=== PATIENT | female | born 1955 | race Caucasian/White ===

== ENCOUNTER → 2016-12-25 | Outpatient (CLI) | payer OTHER | LOC: C.LABSPEC 14:25 | PROVIDERS: ATTEND Internal Medicine Infectious Disease | DX: T88.8XXA Other specified complications of surgical and medical care, not elsewhere classified, initial encounter (principal); X58.XXXA Exposure to other specified factors, initial encounter ==

== ENCOUNTER → 2017-03-31 | Outpatient (CLI) | payer OTHER ==
[2017-03-31 19:42] LABS: BASO % 0.6 %; BASO ABS # 0.07 K/uL (0-0.2); COMPLETE YES; EOS % 1.2 %; IG% 0.6 %; LYMPH % 20.6 %; LYMPH ABS # 2.41 K/uL (1.2-3.4); MEAN CELL VOLUME 91.2 fL (80-100); MEAN CORPUSCULAR HEMOGLOBIN 27.9 pg (25-34); MEAN CORPUSCULAR HGB CONC 30.6 g/dl (32-36); MEAN PLATELET VOLUME 8.9 fL (7.4-10.4); MONO % 7.3 %; NEUT % 69.7 %; PLATELET COUNT 657 K/uL (130-400); WHITE BLOOD COUNT 11.72 K/uL (4.8-10.8)
[2017-03-31 19:56] LABS: ALT/SGPT 44 U/L (12-78); BLOOD UREA NITROGEN 14 mg/dl (7-18); CALCIUM 9.2 mg/dl (8.5-10.1); CARBON DIOXIDE 26 mmol/L (21-32); CHLORIDE 104 mmol/L (98-107); CREATININE 0.68 mg/dl (0.60-1.20); GLUCOSE 107 mg/dl (70-99); POTASSIUM 3.5 mmol/L (3.5-5.1); SODIUM 137 mmol/L (136-145)
[2017-03-31 19:59] LABS: ALB/GLOB RATIO 0.8 (0.9-2); ALKALINE PHOSPHATASE 95 U/L (45-117); AST/SGOT 24 U/L (15-37)
== END | disposition home or self-care (01) ==
LOC: C.LABSPEC 10:25
PROVIDERS: ATTEND Orthopaedic Surgery
DX: L03.319 Cellulitis of trunk, unspecified (principal)

== ENCOUNTER → 2017-04-14 | Outpatient (CLI) | payer OTHER ==
[2017-04-14 11:51] LABS: BASO % 0.5 %; BASO ABS # 0.04 K/uL (0-0.2); COMPLETE YES; EOS % 2.9 %; HEMATOCRIT 35.1 % (37-47); IG% 0.2 %; LYMPH % 24.6 %; LYMPH ABS # 2.05 K/uL (1.2-3.4); MEAN CELL VOLUME 91.4 fL (80-100); MEAN CORPUSCULAR HEMOGLOBIN 28.4 pg (25-34); MEAN CORPUSCULAR HGB CONC 31.1 g/dl (32-36); MEAN PLATELET VOLUME 9.1 fL (7.4-10.4); MONO % 8.2 %; NEUT % 63.6 %; PLATELET COUNT 383 K/uL (130-400); RED BLOOD COUNT 3.84 M/uL (4.2-5.4); WHITE BLOOD COUNT 8.32 K/uL (4.8-10.8)
[2017-04-14 11:59] LABS: ALT/SGPT 26 U/L (12-78); BLOOD UREA NITROGEN 12 mg/dl (7-18); BUN/CREATININE RATIO 18.1 (10-20); CALCIUM 9.5 mg/dl (8.5-10.1); CARBON DIOXIDE 25 mmol/L (21-32); CHLORIDE 106 mmol/L (98-107); CREATININE 0.64 mg/dl (0.60-1.20); GLUCOSE 80 mg/dl (70-99); POTASSIUM 3.8 mmol/L (3.5-5.1); SODIUM 138 mmol/L (136-145)
[2017-04-14 12:02] LABS: ALB/GLOB RATIO 0.9 (0.9-2); ALKALINE PHOSPHATASE 80 U/L (45-117); AST/SGOT 17 U/L (15-37)
== END | disposition home or self-care (01) ==
LOC: C.LABSPEC 11:38
PROVIDERS: ATTEND Orthopaedic Surgery
DX: Z01.89 Encounter for other specified special examinations (principal)

== ENCOUNTER → 2017-04-21 | Outpatient (CLI) | payer OTHER ==
[2017-04-21 17:42] LABS: BASO % 0.6 %; BASO ABS # 0.05 K/uL (0-0.2); COMPLETE YES; EOS % 2.8 %; IG% 0.4 %; LYMPH ABS # 2.08 K/uL (1.2-3.4); MEAN CELL VOLUME 92.7 fL (80-100); MEAN CORPUSCULAR HEMOGLOBIN 28.3 pg (25-34); MEAN CORPUSCULAR HGB CONC 30.5 g/dl (32-36); MEAN PLATELET VOLUME 9.4 fL (7.4-10.4); MONO % 7.1 %; NEUT % 63.1 %; PLATELET COUNT 378 K/uL (130-400); RED BLOOD COUNT 3.99 M/uL (4.2-5.4)
[2017-04-21 17:58] LABS: ALT/SGPT 27 U/L (12-78); BLOOD UREA NITROGEN 11 mg/dl (7-18); BUN/CREATININE RATIO 16.1 (10-20); CALCIUM 9.6 mg/dl (8.5-10.1); CARBON DIOXIDE 24 mmol/L (21-32); CHLORIDE 107 mmol/L (98-107); CREATININE 0.67 mg/dl (0.60-1.20); GLUCOSE 83 mg/dl (70-99); POTASSIUM 3.9 mmol/L (3.5-5.1); SODIUM 140 mmol/L (136-145)
[2017-04-21 18:01] LABS: ALB/GLOB RATIO 0.9 (0.9-2); ALKALINE PHOSPHATASE 80 U/L (45-117); AST/SGOT 20 U/L (15-37)
== END | disposition home or self-care (01) ==
LOC: C.LABSPEC 11:58
PROVIDERS: ATTEND Orthopaedic Surgery
DX: L03.319 Cellulitis of trunk, unspecified (principal)

== ENCOUNTER → 2017-04-28 | Outpatient (CLI) | payer OTHER ==
[2017-04-28 18:50] LABS: BASO % 0.3 %; BASO ABS # 0.03 K/uL (0-0.2); COMPLETE YES; HEMATOCRIT 36.3 % (37-47); IG% 0.3 %; LYMPH % 25.4 %; LYMPH ABS # 2.19 K/uL (1.2-3.4); MEAN CELL VOLUME 92.1 fL (80-100); MEAN CORPUSCULAR HEMOGLOBIN 28.4 pg (25-34); MEAN CORPUSCULAR HGB CONC 30.9 g/dl (32-36); MEAN PLATELET VOLUME 9.6 fL (7.4-10.4); MONO % 8.4 %; NEUT % 63.6 %; PLATELET COUNT 414 K/uL (130-400); RED BLOOD COUNT 3.94 M/uL (4.2-5.4); WHITE BLOOD COUNT 8.62 K/uL (4.8-10.8)
== END | disposition home or self-care (01) ==
LOC: C.LABSPEC 17:44
PROVIDERS: ATTEND Orthopaedic Surgery
DX: L03.319 Cellulitis of trunk, unspecified (principal)

== ENCOUNTER 2017-05-15 23:30 | Emergency (ER) | payer OTHER ==
[~2017-05-15] VITALS: Ht 167.6 cm; Wt 76.5 kg
[2017-05-15 23:39] VITALS: TEMP 36.7; Ht 167.6 cm; Wt 76.5 kg
--- NOTE | 2017-05-16 00:26 | EMERGENCY ROOM VISIT NOTE ---
History Report prepared by Mikki: Malissa Reeves Under the Supervision of: Dr. Gene Ghotra M.D. First contact with patient: 23:44 Chief Complaint: WOUND INFECTION Stated Complaint: INFECTION IN OPEN HIP WOUND LFT SIDE,WOUND VAC History of Present Illness The patient is a 61 year old female who presents to the Emergency Room with complaints of a worsening wound infection starting 8 weeks ago. The patient states that she has a wound vac in place. She reports that she had a hip replacement in September and has been having repeated infections since then. She states that her at home nurse today noticed that it was infected today. The patient states that she has yellow drainage from it with a smell, is red, and is hot to the touch. She states that she was told they would come put one on tonight, but the nurse refused to come do it. The patient states that she was on antibiotics and ended them last Thursday. She reports that she came to the ED to get her wound vac put back on. She currently rates her pain as a 2/10 in severity. The patient denies fever, nausea, vomiting, and abdominal pain. Source of History: patient Onset: 8 weeks ago Position: other (global) Symptom Intensity: 2/10 Quality: other (global) Timing: worsening Associated Symptoms: No fevers, No nausea, No vomiting, No abdominal pain Note: The patient complains of her wound having yellow smelly drainage, erythema, and warmth. Review of Systems See HPI for pertinent positives & negatives. A total of 10 systems reviewed and were otherwise negative. Past Medical & Surgical Surgical Problems: (1) History of hip replacement Family History No pertinent family history Social History Smoking Status: Never Smoker Drug Use: none Marital Status: Housing Status: lives with significant other Occupation Status: retired Current/Historical Medications Unable to Obtain Active Prescriptions or Reported Meds Physical Exam Vital Signs Date Time Temp Pulse Resp B/P (MAP) Pulse Ox O2 Delivery O2 Flow Rate FiO2 05/16/17 00:54 90 18 135/104 97 05/15/17 23:39 36.7 104 16 151/98 96 Room Air Physical Exam GENERAL: Patient is well appearing and in no acute distress. HEENT: No acute trauma, normocephalic atraumatic, mucous membranes moist, no nasal congestion, no scleral icterus. NECK: No stridor, no adenopathy, no meningismus, trachea is midline. ABDOMEN: Soft, nontender, bowel sounds positive, no masses appreciated, no peritonitis. EXTREMITIES: Normal motion all extremities, no cyanosis, no edema. Large deep wound of the left lateral hip with some surrounding skin irritation. Inner portion of wound is draining mild exudate with increased erythema and warmth. NEUROLOGIC: Alert and oriented, no acute motor or sensory deficits, no focal weakness, cranial nerves grossly intact. SKIN: No rash, no jaundice, no diaphoresis. Medical Decision & Procedures ED Course 2347: The patient was evaluated in room B7. A complete history and physical exam was performed. 2350: I discussed the patient with the charge nurse and they are going to try to figure out if anyone knows how to put a wound vac back on. 0026: I reevaluated the patient. She will see her surgeon on Thursday. We are going to bandage her wounds. I discussed my feeling that she should be on a higher dose of Clindamycin. Discussed results and discharge instructions: She verbalized understanding and agreement. The patient is ready for discharge. Medical Decision Pleasant 61 yr old female arrives for replacement of left hip wound vac. She has extensive surgical/infection history of this site which has been treated at [facility] and has not been seen here previously. She is requesting replacement of wound vac that was recently removed as well as wound culture. ER policy is that wound vacs are not placed and thus discussed this with patient, as did Dada Charge Nurse. We dressed wound in standard fashion after culture sent. She is currently just started on 300mg Clinda BID. I discussed my concern that , especially with her history, this may not be a high enough dose and thus I suggested she talk to her prescriber about it. I also told her I felt it would be safe to do QID abx in short term, though there are risks for cdiff/etc. She has no systemic symptoms, no spreading cellulitis and is otherwise stable thus I feel that continued outpatient reasonable, especially so that she can see person who has been managing this in next few days as planned. She is well aware she can return at any time if worsening or other concerns. Medication Reconcilliation Current Medication List: was personally reviewed by me Blood Pressure Screening Patient's blood pressure: Elevated blood pressure Blood pressure disposition: Referred to PCP Impression Primary Impression: Encounter for postoperative wound care Additional Impression: Postoperative wound infection of left hip Scribe Attestation The scribe's documentation has been prepared under my direction and personally reviewed by me in its entirety. I confirm that the note above accurately reflects all work, treatment, procedures, and medical decision making performed by me. Departure Information Dispostion Home / Self-Care Prescriptions Unable to Obtain Active Prescriptions or Reported Meds Referrals No Doctor, Assigned (PCP) Forms HOME CARE DOCUMENTATION FORM, IMPORTANT VISIT INFORMATION, WORK / SCHOOL INSTRUCTIONS Patient Instructions My [facility] Additional Instructions Follow up with wound care nurse tomorrow to discuss placement of wound vac. Discuss with your surgeon on Thursday the results of wound culture. Return if fevers, vomiting, nausea, passing out, weakness, increased rash or other concerning symptoms. We are always here to help. It is very important you discuss with your surgeon the optimal dosing of your Clindamycin. Problem Qualifiers
[2017-05-16 00:54] VITALS: BP 135/104; PULSE 90; O2SAT 97
== END 2017-05-16 00:55 | disposition home or self-care (01) ==
LOC: C.EDB 23:32
DX: L08.9 Local infection of the skin and subcutaneous tissue, unspecified (principal); Z98.890 Other specified postprocedural states; Z96.642 Presence of left artificial hip joint

== ENCOUNTER → 2017-07-10 | Outpatient (CLI) | payer OTHER | END | disposition home or self-care (01) | LOC: C.LABSPEC 13:15 | PROVIDERS: ATTEND Family Medicine | DX: Z01.89 Encounter for other specified special examinations (principal) ==

== ENCOUNTER → 2017-07-19 | Outpatient (CLI) | payer OTHER | END | disposition home or self-care (01) | LOC: C.LABSPEC 11:58 | PROVIDERS: ATTEND Family Medicine | DX: L03.119 Cellulitis of unspecified part of limb (principal) ==

== ENCOUNTER → 2017-07-27 | Outpatient (CLI) | payer OTHER ==
[2017-07-27 12:25] LABS: BASO % 0.6 %; BASO ABS # 0.05 K/uL (0-0.2); EOS ABS # 0.33 K/uL (0-0.5); HEMATOCRIT 34.9 % (37-47); IG# 0.02 K/uL (0.00-0.02); LYMPH % 18.7 %; LYMPH ABS # 1.54 K/uL (1.2-3.4); MEAN CELL VOLUME 84.5 fL (80-100); MEAN CORPUSCULAR HEMOGLOBIN 26.6 pg (25-34); MEAN CORPUSCULAR HGB CONC 31.5 g/dl (32-36); MEAN PLATELET VOLUME 9.3 fL (7.4-10.4); MONO % 10.1 %; MONO ABS # 0.83 K/uL (0.11-0.59); NEUT % 66.4 %; NEUT ABS # 5.48 K/uL (1.4-6.5); PLATELET COUNT 489 K/uL (130-400); RED CELL DISTRIBUTION WIDTH CV 16.2 % (11.5-14.5); RED CELL DISTRIBUTION WIDTH SD 50.4 fL (36.4-46.3); WHITE BLOOD COUNT 8.25 K/uL (4.8-10.8)
[2017-07-27 12:36] LABS: BLOOD UREA NITROGEN 17 mg/dl (7-18); CALCIUM 9.8 mg/dl (8.5-10.1); CARBON DIOXIDE 26 mmol/L (21-32); CREATININE 0.64 mg/dl (0.60-1.20); GLUCOSE 91 mg/dl (70-99); POTASSIUM 3.6 mmol/L (3.5-5.1); SODIUM 135 mmol/L (136-145)
== END | disposition home or self-care (01) ==
LOC: C.LABSPEC 09:15
PROVIDERS: ATTEND Family Medicine
DX: T84.52XD Infection and inflammatory reaction due to internal left hip prosthesis, subsequent encounter (principal); X58.XXXD Exposure to other specified factors, subsequent encounter

== ENCOUNTER → 2017-09-24 | Outpatient (CLI) | payer OTHER | END | disposition home or self-care (01) | LOC: C.LAB 11:45 | PROVIDERS: ATTEND Orthopaedic Surgery | DX: N39.0 Urinary tract infection, site not specified (principal) ==

== ENCOUNTER 2021-11-26 10:35 | Observation (INO) ==
--- NOTE | 2021-10-30 08:30 | PAT Medication Instructions ---
Medication Instructions Date of Service October 30, 2021 Home Medications atenolol 25 mg tablet 25 mg PO QAM cholecalciferol (vitamin D3) 125 mcg (5,000 unit) tablet (Vitamin D3) 5,000 unit PO QAM cyanocobalamin (vitamin B-12) 1,000 mcg tablet 1,000 mcg PO BID ferrous sulfate 325 mg (65 mg iron) tablet 325 mg PO BID folic acid 1 mg tablet 1 mg PO QAM magnesium oxide 400 mg (241.3 mg magnesium) tablet 400 mg PO QPM [place] Rosea 2 cap PO QAM bupropion HCl 150 mg tablet,12 hr sustained-release 150 mg PO BID clonazepam 0.25 mg disintegrating tablet 0.25 mg PO QID famotidine 20 mg tablet 20 mg PO BID ibuprofen 200 mg tablet 400 mg PO Q6H PRN vitamin K2 100 mcg capsule 100 mcg PO QAM ASK your surgeon for instructions ibuprofen 200 mg tablet 400 mg PO Q6H PRN ASK your prescriber and surgeon (or as soon as possible if surgery is within 2 weeks) Rhodiola Rosea 2 cap PO QAM DO NOT take the morning of surgery cholecalciferol (vitamin D3) 125 mcg (5,000 unit) tablet (Vitamin D3) 5,000 unit PO QAM cyanocobalamin (vitamin B-12) 1,000 mcg tablet 1,000 mcg PO BID ferrous sulfate 325 mg (65 mg iron) tablet 325 mg PO BID folic acid 1 mg tablet 1 mg PO QAM vitamin K2 100 mcg capsule 100 mcg PO QAM Take morning of surgery With a small sip of water, OTHERWISE NOTHING TO EAT OR DRINK AFTER MIDNIGHT: atenolol 25 mg tablet 25 mg PO QAM bupropion HCl 150 mg tablet,12 hr sustained-release 150 mg PO BID clonazepam 0.25 mg disintegrating tablet 0.25 mg PO QID Take evening before surgery cyanocobalamin (vitamin B-12) 1,000 mcg tablet 1,000 mcg PO BID ferrous sulfate 325 mg (65 mg iron) tablet 325 mg PO BID magnesium oxide 400 mg (241.3 mg magnesium) tablet 400 mg PO QPM bupropion HCl 150 mg tablet,12 hr sustained-release 150 mg PO BID clonazepam 0.25 mg disintegrating tablet 0.25 mg PO QID famotidine 20 mg tablet 20 mg PO BID Other Notes If you have any questions please call us at [phone] or [phone] or [phone] or [phone]
--- NOTE | 2021-10-31 11:01 | Anesthesiology Consultation ---
Date of Service October 31, 2021 Assessment & Plan (1) Encounter for pre-operative examination: - COVID screening: Per assessment on 10/31: No known COVID-19 positive contacts or current COVID-19 related symptoms. Travel screen negative. Patient vaccinated. Surgeon arranging preop COVID testing. Awaiting results. - Anemia: hgb 9.6 on preop labs. Note written to PCP. Awaiting response from PCP (Dr. Adam Miller; Omar). Chart Review Chart Review: Patient seen in Pre Admission Testing Teaching & Discussion Pre-Anesthesia Teaching/Discussion Notes: Instructed NPO after midnight before surgery,except medications with 15 cc of water. Medication instructions provided according to the PAT guidelines. History Surgery Operation Date: 11/26/21 07:00 Proposed Procedures p Right Total Knee Replacement - Arvind Carl MD Height/Weight Height: 5 ft 6 in Weight: 74.9 kg Allergies Allergy/AdvReac Type Severity Reaction Status Date / Time cephalexin [From Keflex] Allergy Intermediate Hives Verified 10/29/21 16:35 latex Allergy Mild Rash Verified 10/29/21 16:36 Sulfa (Sulfonamide Allergy Mild Rash Verified 10/29/21 16:35 Antibiotics) sulfamethoxazole Allergy Mild Rash Verified 10/29/21 16:35 trimethoprim Allergy Mild Rash Verified 10/29/21 16:35 Penicillins Allergy Unknown Unknown Verified 10/29/21 16:35 Medications Home Medications Medication Instructions Recorded Confirmed Last Taken atenolol 25 mg tablet 25 mg PO QAM 04/28/18 10/29/21 04/27/18 cholecalciferol (vitamin D3) 125 5,000 unit PO QAM 04/28/18 10/29/21 04/27/18 mcg (5,000 unit) tablet (Vitamin D3) cyanocobalamin (vitamin B-12) 1,000 mcg PO BID 04/28/18 10/29/21 04/27/18 1,000 mcg tablet ferrous sulfate 325 mg (65 mg 325 mg PO BID 04/28/18 10/29/21 04/27/18 iron) tablet folic acid 1 mg tablet 1 mg PO QAM 04/28/18 10/29/21 04/27/18 magnesium oxide 400 mg (241.3 mg 400 mg PO QPM 04/28/18 10/29/21 04/27/18 magnesium) tablet Rhodiola Rosea 2 cap PO QAM 10/29/21 10/29/21 Unknown bupropion HCl 150 mg tablet,12 hr 150 mg PO BID 10/29/21 10/29/21 Unknown sustained-release clonazepam 0.25 mg disintegrating 0.25 mg PO QID 10/29/21 10/29/21 Unknown tablet famotidine 20 mg tablet 20 mg PO BID 10/29/21 10/29/21 Unknown ibuprofen 200 mg tablet 400 mg PO Q6H PRN 10/29/21 10/29/21 Unknown vitamin K2 100 mcg capsule 100 mcg PO QAM 10/29/21 10/29/21 Unknown Past Medical History Medical History Anxiety Depression GERD (gastroesophageal reflux disease) controlled Hypertension Lyme disease on doxycycline (incidental finding with workup for knee swelling) Osteoarthritis Psoriatic arthritis Exercise / Class Metabolic Activity II 4-5 Yardwork/Stairs/Walk up hill (one FS (no CP, no SOB)) Past Family History Family History Other No family history of adverse response to anesthesia Past Surgical History Surgical History History of section x2 History of colonoscopy History of left hip replacement s/p replacement in 2017 followed by prosthetic joint infection, with subsequent removal of prosthetic joint s/p repeat replacement in 09/2017 ([facility] [place]) ORIF Periprosthetic FMR FX Hip (04/28/18): Grade view 1, Mora #2, ETT 7.5 at [facility] History of wisdom tooth extraction Past Anesthesia History No Hx of Anesthesia Complications and No Family Hx of Anesthesia Complications History of PONV No Hx of PONV and No Hx of Motion Sickness Social History Smoking Status: Never smoker Do You Dip or Chew Tobacco: No Hx Alcohol Use: Yes Alcohol type: wine alcohol intake frequency: a few times a month Hx Substance Use: No substance use type: does not use Review of Systems Patient denies chest pain, shortness of breath, dyspnea on exertion, fever, chills, cough, wheezing, palpitations. Physical Exam Vital Signs VITALS BP 124/82 P 68 TEMP 99.0 SP02 97%RA RESP 18 PHYSICAL Full cervical extension range of motion. Full TMJ range of motion. TMD 3 finger breaths Mallampati Score 2 Dentition: missing molar, + crown Lungs: clear throughout to auscultation Cardiac: regular rate and rhythm, I-II/ systolic murmur Spine: normal Carotid arteries: negative bruit Extremities: no edema Lab Results Anesthesia Preop Results Results Anesthesia Widget: WBC 5.50 K/uL (4.8-10.8) 10/31/21 Hgb 9.6 g/dL (12.0-16.0) L 10/31/21 Hct 31.3 % (37-47) L 10/31/21 Plt 453 K/uL (130-400) H 10/31/21 Na 138 mmol/L (136-145) 10/31/21 K 4.4 mmol/L (3.5-5.1) 10/31/21 Cl 106 mmol/L (98-107) 10/31/21 CO2 26 mmol/L (21-32) 10/31/21 BUN 12 mg/dl (6-23) 10/31/21 Creat 0.79 mg/dl (0.6-1.2) 10/31/21 Glucose Level 91 mg/dl (70-99(Fasting)) 10/31/21 PT 10.5 Seconds (9.0-12.0) 10/31/21 PTT 25.5 Seconds (21.0-31.0) 10/31/21 INR 1.0 (0.9-1.1) 10/31/21 Blood Type A Positive 10/31/21 Antibody Screen NEGATIVE 10/31/21 Testing Laboratory Results 10/09/21 HGBA1C 5.3% Electrocardiogram Date: 10/31/21 NSR at 68bpm. unconfirmed report. Chest X-Ray Date: 10/31/21 Findings: + NAD Echocardiogram Date: 12/26/15 EF 64%. No RWMA. Mild TR. Mild MR.
--- NOTE | 2021-11-23 10:36 | History and Physical Report ---
DATE OF ADMISSION: 11/26/2021 CHIEF COMPLAINT: Persistent right knee pain, discomfort and instability. HISTORY OF PRESENT ILLNESS: The patient is a 66-year-old female well known to me from a previous lef t periprosthetic femur ORIF done back in April 2018. She has got a very complex history related to her left hip. She did pretty well from this. Over the past several years, she has had persistent p rogressive increasing right knee pain, discomfort and instability that has gotten worse over time. S he has been through extensive conservative treatment including bracing and injections, which have pro vided some relief initially, but became less successful. Her knee gives out on her intermittently. She is using a cane to get around. She would like to have her knee fixed. PAST MEDICAL HISTORY: Significant for: 1. Depression. 2. Anxiety. 3. Gastroesophageal reflux disease. 4. Hypertension. 5. Arthritis. PAST SURGICAL HISTORY: Includes: 1. Left hip replacement in 2016. 2. Left hip revision with antibiotic spacer in 09/2017. 3. Left periprosthetic femur ORIF in 2018. ALLERGIES: KEFLEX, WHICH CAUSES HIVES. ALSO, DESCRIBES ALLERGIES TO BACTRIM, PENICILLIN AND SULFA. CURRENT MEDICATIONS: Include: 1. Aspirin. 2. Atenolol. 3. Vitamin D3. 4. Citalopram. 5. Clonazepam. 6. Iron sulfate. 7. Folic acid. 8. Hydrocodone. 9. Magnesium. 10. Omeprazole. 11. Ranitidine. SOCIAL HISTORY: A 66-year-old female. She is . She does have a significant other who care for her. Does not smoke. Occasional wine intake. FAMILY HISTORY: Noncontributory. REVIEW OF SYSTEMS: Negative for diabetes, neurologic problem, vascular problem, or bleeding disorder s. Does have this history of infection, which looks to be cleared up. She does have a history of ri ght leg wound, which is healed as well. No signs of persistent infection. No fevers, no weight loss . PHYSICAL EXAMINATION: GENERAL: Shows a pleasant, elderly female. Looks to be in reasonably good health. HEENT: Benign. NECK: Supple. No lymphadenopathy. LUNGS: Clear to auscultation. HEART: Regular rate and rhythm. ABDOMEN: Soft, nontender, nondistended. EXTREMITIES: Grossly neurovascularly intact except as follows: Examination of the right leg reveale d the patient walks with use of a cane. She has got valgus alignment to her right knee increased wit h weightbearing. It goes into significant valgus. She has about a 10-degree flexion contracture and bends about 110 degrees. No pain with hip motion. She is neurologically intact. Examination of the right mike reveals a well-healed wound from some chronic stasis changes. No activ e signs of infection. She does have some venous stasis changes. Examination of the left hip reveals several and multiple wounds that appear to be well-healed. X-RAYS: X-rays of the right knee reviewed. She has advanced right knee lateral compartment DJD. Sh e has complete loss of her lateral joint space. She has got gapping medially. She has subchondral s clerosis. Diffuse osteopenia. ASSESSMENT: A 66-year-old female with a complex history related to a previous left hip surgery and i nfection, status post ORIF of a fracture with what looks to be a healed hip and femur. There are no signs of residual infection. She has got advanced right knee degenerative joint disease and failed c onservative treatment and would like to have her right knee replaced. She does have some chronic florian ous stasis changes, but look to be all healed up. PLAN: We talked about treatment. She would like to have her knee fixed. We will proceed with knee replacement. We did talk about her increased risk of infection. We are going to be very careful as far as controlling her swelling. The risks and benefits of right total knee replacement were explain ed to the patient and include, but not limited to DVT, PE, , infection, neurological injury, vas cular injury, bleeding problem, pain, limited range of motion, stiffness, failure to relieve her symp toms, incomplete relief of symptoms, need for further surgery in the future, persistent pain, etc. T he patient understands and desires to proceed. Informed consent was obtained. We will probably put some vancomycin in her cement to try and decrease the risk of infection. We yariel garcia probably treat her with a week of postoperative antibiotics as well. She does have some help at [facility] to help her postoperatively. I will see her back two weeks postop. We will likely need a constra ined insert for her knee as well. Job ID: [id number]
[~2021-11-26 10:35] MED LIST: ACETAMINOPHEN 500 MG TAB PO SCH; BUPIVACAINE 0.5 % 5 MG/1 ML PF 10ML VIAL ONE; BUPIVACAINE LIPOSOME/PF 266 MG, BUPIVACAINE/EPINEPHRINE 50 ML, SODIUM CHLORIDE 0.9% 30 ... INFIL SCH; FAMOTIDINE 20 MG TAB PO SCH; GABAPENTIN 300 MG CAP PO SCH; LR 500ML BOLUS, THEN 15ML/HR IV SCH; ROPIVACAINE 0.5% 5 MG/ML 30 ML VIAL ONE; TRANEXAMIC ACID 1,000 MG **IV Intra-op IV SCH; ceFAZolin 2000MG 2,000 MG/15 ML SYR IV SCH
--- NOTE | 2021-11-26 10:50 | History & Physical Bridge Note ---
Date of Service November 26, 2021 History & Physical Bridge Note I have examined the patient, reviewed the History & Physical and in the interval since the performance of the History & Physical I have noted the following changes of clinical significance: no changes noted
[2021-11-26] MEDS: LR 60ML/HR IV SCH ×2 (11:33→17:41)
[2021-11-26] MEDS ORDERED: MIDAZOLAM HCL 1 MG/ML 2ML VIAL ONE (12:21)
[2021-11-26] MEDS ORDERED: BUPIVACAINE/EPINEPHRINE 0.25% 1:200,000 30 ML VIAL ONE (12:58)
[2021-11-26] MEDS ORDERED: SODIUM CHLORIDE 0.9% PF 50 ML VIAL ONE (12:59)
[2021-11-26] MEDS ORDERED: BUPIVACAINE LIPOSOME 1.3% 266 MG/20 ML VIAL ONE (12:59)
[2021-11-26] MEDS ORDERED: VANCOMYCIN HCL 1000MG/20ML VIAL ONE (12:59)
[2021-11-26] MEDS ORDERED: LIDOCAINE 2% 2 ML VIAL/AMP(20MG/ML) INFIL ONE (13:07)
[2021-11-26] MEDS ORDERED: PROPOFOL IV EMULSION 10 MG/ML 20 ML VIAL IV ONE (13:07)
[2021-11-26] MEDS ORDERED: ONDANSETRON INJ 2 MG/ML 2 ML VIAL ONE (13:07)
--- NOTE | 2021-11-26 15:27 | Operative Report ---
PG Post Operative Report Pre & Post Diagnosis Operation Date: 11/26/21 12:30 Pre-Op Diagnosis: Right Knee Osteoarthitis Post-Op Diagnosis: Right Knee Osteoarthitis I identified the patient and participated in the time-out.: Yes Procedure Operation Date: 11/26/21 12:30 Actual Procedures p Right Total Knee Replacement(Right) - Arvind Carl MD Surgeon Arvind Carl MD Electrical Products Engineer Brian Wallace PA-C Estimated Blood Loss 50 Findings Consistent with Post-Op Diagnosis Operative findings revealed advanced right knee tricompartment DJD with a fixed valgus deformity and severe erosive disease laterally and in the patellofemoral joint. She had a very large chronic burned-out pannus. Moderate-sized joint effusion. Diffuse osteopenia. Specimens Right knee sent for pathology Anesthesia Type Spinal MAC Complications none Disposition Accompanied Patient To Recovery: No Indications Patient is 66-year-old female said a long history of multiple joint problems over the years. She developed increased pain discomfort in her right knee. She been through extensive conservative treatment became less successful over time. Pain is become more disabling. She elected proceed with total knee arthroplasty. Description of Procedure Operative implants consist of: 1. Biomet Vanguard size 65 right posterior stabilized femoral component. 2. Biomet size 71 tibial tray with a 80 mm x 12.5 mm cemented stem 3. 10 mm posterior stabilized polyethylene insert 4. 28 x 8 all polypatella. Patient was taken the operating, identified, and placed on the operating table supine position protectors were properly padded. IV antibiotics tried by anesthesia team. A spinal anesthetic and abductor canal block had been placed in the holding area. Diaz catheter was placed in sterile fashion. Right thigh turn was then placed in the right lower extremities and prepped and draped in usual sterile fashion. The right leg was elevated exsanguinated use of an Esmarch interspaced at 3 mmHg. An anterior approach of the right knee was then performed to longitudinal incision centered over the patella. Sharp dissection carried through subcutaneous tissue down the extensor mechanism. A medial parapatellar arthrotomy incision was made. Some subperiosteal dissection was carried out medially. The fat pad was dissected beneath patella tendon. Lateral patellofemoral ligament was released. Patella subluxated laterally and the knee was flexed. The osteophytes taken off distal femur. The ACL and PCL were then released from distal femur the tibia subluxated anteriorly. The external tibial alignment jig was then placed in the interface the tibia and adjusted 12 mm medially. Proximal tibial cut was made remove about 3 to 4 mm of bone from the medial side. The medial side was fairly osteopenic. The tibia was then sized to a size 71. Attention drawn the femur. The distal femur with a sharp drop with intramedullary canal was suction. A right 5 degree valgus cutting guide was placed.. The distal femoral cutting block was pinned in place and the distal femoral cut was made to take an additional 5 mm of bone off the distal femur. We brought the knee out in extension and then I did release the IT band posterior capsule in order to equalize extension gap. The knee was flexed. The femur was then sized to a size 65. The AP cutting block was pinned parallel to the epicondylar axis which was 8 degrees of external rotation. Anterior cut, anterior chamfer, posterior cut, posterior chamfer cuts were made. The box cutting guide was placed in just slight lateral box cut was made. The knee was flexed. The remnants of medial lateral menisci were excised. The osteophytes were taken off the posterior aspect of femur. I did have to release the popliteus in order to equalize the flexion gap. A trial femoral component was placed. The tibial tray was then pinned in position. I then prepared the proximal tibia for the cemented stem with the and the keel punch. Trial implant was placed. We then trialed the knee and the 10 mm insert fit most appropriately. Her ligaments appeared stable so I did not put a constrained device. We did use a cemented stem due to her osteopenia and the severe valgus deformity. Attention drawn the patella. The patella was cleaned of all soft tissues. Patella thickness measured 22 mm in thickness cut down to 15. Was very osteopenic and I did not want to make it any thinner. We sized this to a size 28 patella. The lug holes were drilled for the 28 patella. Lateral osteophytes removed. Patella was button was placed and the knee was taken through range of motion patella tracked nicely with no thumbs test. Attention drawn to placing permanent components. Nupathe all trial components were removed. Bone plug was placed in the distal femur limit blood loss. I also placed a bone plug in the tibia. A double batch Palacos G cement was mixed with additional gram of vancomycin. A Biomet size 65 right posterior stabilized femoral component, size 71 tibial tray with a 80 mm stem, 10 mm posterior stabilized polyethylene insert, and a 28 x 8 all polypatella were then cemented in place. Knee was brought out into full extension total cement hardened. Final cement check was then performed. The pericapsular tissues were injected with total 100 cc of combination of 20 cc of Exparel, 30 cc normal saline, 50 cc of quarter percent Marcaine with epinephrine. Patient did receive 1 g tranexamic acid. The tourniquet was let down for terminal turn time side of 70 minutes. Hemostasis assured use electrocautery. Extensor mechanism closed with combination 1 PDS suture #1 Vicryl suture in [id number] fashion. Extensor mechanism checked found to be intact and subcutaneous tissue then closed with 2 Dexon suture in a buried interrupted fashion skin was closed skin emma. Leg was then cleaned and dried a sterile dressing was Xeroform, 4 x 4's, sterile cast padding, Jr bands were applied. Patient then transferred to the recovery room in stable condition. Patient tolerated procedure well and there were no complications. Brian Wallace, my physician pharmacy sales assistant, was present for the entire procedure. His assistance was essential and required for appropriate patient positioning, prepping and draping, surgical exposure, performing the technical details of the operation, placement the implants, closure of the wound, and placement of the sterile bandage. I attest to the content of the Intraoperative Record and any orders documented therein. Any exceptions are noted below.
--- NOTE | 2021-11-26 15:46 | Anesthesiology Progress Note ---
Date of Service November 26, 2021 Anesthesia Post Procedure Vital Signs Vital Signs: Temp Pulse Pulse Resp BP Pulse Ox 11/26/21 15:40 62 16 107/73 100 11/26/21 15:30 60 20 111/69 100 11/26/21 15:20 36.0 C L 69 16 103/66 95 11/26/21 13:10 55 L 20 107/74 98 11/26/21 10:50 36.6 C 69 18 155/89 H 99 Transfer of Care Handoff Completed per policy Notes Mental Status: alert / awake / arousable Patient Amnestic to Procedure: Yes Nausea / Vomiting: adequately controlled Pain: adequately controlled Airway Patency, RR, SpO2: stable & adequate BP & HR: stable & adequate Hydration State: stable & adequate Anesthetic Complications: no major complications apparent
--- NOTE | 2021-11-26 16:27 | XRay Report ---
RIGHT KNEE 2 VIEWS History: Right total knee arthroplasty. Degenerative arthritis. Postop. FINDINGS: The patient is status post a right total knee arthroplasty. The hardware is intact. No frac ture or dislocation. Skin emma are in place. IMPRESSION: Right total knee arthroplasty. No evidence for hardware complication. ACT 112: Negative or not required by law. Electronically signed by: Herber Escobedo M.D. 11/26/2021 4:25 PM
[2021-11-26] MEDS ORDERED: HYDROmorphone HCL 2 MG TAB PO PRN (16:51)
[2021-11-26] MEDS ORDERED: bisacodyL 10 MG SUPP PR PRN (16:51)
[2021-11-26] MEDS ORDERED: NALOXONE HCL 0.4 MG/1 ML VIAL/CARP IV PRN (16:51)
[2021-11-26] MEDS ORDERED: MAGNESIUM HYDROXIDE SUSP 30 ML UDC PO PRN (16:51)
[2021-11-26] MEDS ORDERED: METOCLOPRAMIDE HCL INJ 5 MG/ML 2 ML VIAL IV PRN (16:51)
[2021-11-26] MEDS ORDERED: ALUMINUM/MAGNESIUM SUSP 30 ML UDC PO PRN (16:51)
[2021-11-26] MEDS ORDERED: ONDANSETRON INJ 2 MG/ML 2 ML VIAL IV PRN (16:51)
[2021-11-26] MEDS: SODIUM CHLORIDE 0.9% 1000ML 1,000 ML IV SCH (17:49)
[2021-11-26] MEDS: clonazePAM 0.25 MG TAB PO SCH ×2 (18:24→20:58)
[2021-11-26] MEDS: KETOROLAC TROMETHAMINE 15 MG/ML VIAL IV SCH (18:26)
[2021-11-26] MEDS: ASCORBIC ACID 500 MG TAB PO SCH (18:32)
[2021-11-26] MEDS: CYANOCOBALAMIN (B-12) 500 MCG TABLET PO SCH (20:53)
[2021-11-26] MEDS: TAPENTADOL HCL ER 50 MG TABCR PO SCH (20:53)
[2021-11-26] MEDS: ASPIRIN 81 MG ECTAB PO SCH (20:54)
[2021-11-26] MEDS: FERROUS SULFATE 325 MG TAB PO SCH (20:54)
[2021-11-26] MEDS: buPROPion SR 150 MG TABCR PO SCH (20:54)
[2021-11-26] MEDS: DOCUSATE SODIUM 100 MG CAP PO SCH (20:55)
[2021-11-26] MEDS: FAMOTIDINE 20 MG TAB PO SCH (20:55)
[2021-11-26] MEDS ORDERED: MAGNESIUM OXIDE 400 MG TAB PO SCH (21:00)
[2021-11-26] MEDS ORDERED: SENNA 8.6 MG TAB PO SCH (21:00)
[2021-11-26] MEDS ORDERED: TRANEXAMIC ACID / 0.7% NACL 1,000 MG/100 ML BAG IV SCH (21:00)
[2021-11-26] MEDS ORDERED: ACETAMINOPHEN 500 MG TAB PO SCH (22:00)
[2021-11-26] MEDS: ceFAZolin 1000MG 1,000 MG/7.5 ML SYR IV SCH (22:17)
[2021-11-26] MEDS: ACETAMINOPHEN 500 MG TAB PO SCH (22:17)
[2021-11-27] MEDS: KETOROLAC TROMETHAMINE 15 MG/ML VIAL IV SCH ×3 (01:02→13:02)
[2021-11-27] MEDS: SODIUM CHLORIDE 0.9% 1000ML 1,000 ML IV SCH (04:18)
[2021-11-27] MEDS: ceFAZolin 1000MG 1,000 MG/7.5 ML SYR IV SCH (05:35)
[2021-11-27] MEDS: ACETAMINOPHEN 500 MG TAB PO SCH ×2 (05:36→14:16)
[2021-11-27 06:31] LABS: Hematocrit (blood only) 32.3 % (37-47); Hemoglobin 10.2 g/dL (12.0-16.0); Mean Corpuscular Hemoglobin 30.4 pg (25-34); Mean Corpuscular Hgb Conc 31.6 g/dL (32-36); Mean Corpuscular Volume 96.1 fL (80-100); Mean Platelet Volume 9.7 fL (7.4-10.4); Platelet Count 313 K/uL (130-400); RDW Coefficient of Variation 14.6 % (11.5-14.5); RDW Standard Deviation 51.9 fL (36.4-46.3); Red Blood Count 3.36 M/uL (4.2-5.4)
[2021-11-27 06:56] LABS: BUN Creatinine Ratio 19.1 (10-20); Calcium 8.9 mg/dl (8.5-10.1); Creatinine Clr Calc Pharmacy 62.1 ml/min; Est GFR (African American) 77.2 ml/min; Est GFR (Non-African American) 66.6 ml/min; Potassium 4.1 mmol/L (3.5-5.1)
[2021-11-27] MEDS ORDERED: dexAMETHasone 10 MG in SYRINGE 0 ML IV SCH (08:00)
[2021-11-27] MEDS: ASCORBIC ACID 500 MG TAB PO SCH (08:14)
[2021-11-27] MEDS: FAMOTIDINE 20 MG TAB PO SCH (08:14)
[2021-11-27] MEDS: buPROPion SR 150 MG TABCR PO SCH (08:15)
[2021-11-27] MEDS: FERROUS SULFATE 325 MG TAB PO SCH (08:16)
[2021-11-27] MEDS: ASPIRIN 81 MG ECTAB PO SCH (08:16)
[2021-11-27] MEDS: DOCUSATE SODIUM 100 MG CAP PO SCH (08:17)
[2021-11-27] MEDS: CYANOCOBALAMIN (B-12) 500 MCG TABLET PO SCH (08:17)
[2021-11-27] MEDS: TAPENTADOL HCL ER 50 MG TABCR PO SCH (08:29)
[2021-11-27] MEDS: clonazePAM 0.25 MG TAB PO SCH ×2 (08:30→13:01)
[2021-11-27] MEDS ORDERED: ATENOLOL 25 MG TABLET PO SCH (09:00)
[2021-11-27] MEDS ORDERED: MULTIVITAMIN TAB PO SCH (09:00)
[2021-11-27] MEDS ORDERED: FOLIC ACID 1 MG TAB PO SCH (09:00)
[2021-11-27] MEDS ORDERED: CHOLECALCIFEROL 5,000 UNITS 125 MCG TAB PO SCH (09:00)
[2021-11-27] MEDS ORDERED: RHODIOLA ROSEA PO SCH (09:00)
[2021-11-27] MEDS ORDERED: DOCUSATE SODIUM/SENNA 50/8.6MG TAB PO SCH (09:00)
[2021-11-27] MEDS ORDERED: NON-FORMULARY MEDICATION (Vitamin K2 100 mcg Capsule) PO SCH (09:00)
--- NOTE | 2021-11-27 20:54 | Progress Notes ---
DATE OF SERVICE: 11/27/2021 CHIEF COMPLAINT: Follow up of right knee replacement postoperative day 1. HISTORY OF PRESENT ILLNESS: The patient is 66-year-old female now postoperative day 1 from right kn ee replacement. Her legs finally did wake up last evening. Her pain has been controllable. Therapy went pretty well today. She is hoping to go home. No chest pain or shortness of breath. Not feeli ng dizzy or lightheaded. OBJECTIVE: VITAL SIGNS: Temperature 37.1. Vital signs are stable. PHYSICAL EXAMINATION: GENERAL: Shows a pleasant, elderly female. She is sitting up in her bedside chair, looks pretty com fortable. LUNGS: Clear to auscultation. HEART: Regular rate and rhythm. ABDOMEN: Soft, nontender, nondistended. EXTREMITIES: Grossly neurovascularly intact except as follows: Examination of the right leg reveals the dressing to be clean, dry and intact. She can do a straight leg raise, but a little bit of a la g. Bends to about 90 degrees. Dressing is clean, dry and intact. She can dorsiflex and plantarflex her foot appropriately. NEUROLOGIC: She is neurologically intact. LABORATORY DATA: Hemoglobin 10.2. Hematocrit 32.3. Electrolytes are stable. ASSESSMENT: A 66-year-old white female with a history of infection in the past, now postoperative da y 1 status post a right total knee replacement for severe valgus deformity. She is doing pretty well . Pain seems to be controlled. She is neurologically intact. PLAN: 1. DVT prophylaxis including thigh-high TEDs, SCDs, and aspirin twice a day. 2. PT/OT. She can weight bear as tolerated. Right total knee protocol. 3. Doing okay with current pain regimen. We will plan on using Dilaudid as she has used pain medici ne preoperatively. 4. Disposition: Plan to discharge to home with her /significant other's assistance and home health. Job ID: [id number]
--- NOTE | 2021-11-28 14:04 | Discharge Summary ---
Date of Service November 28, 2021 Discharge Data Procedures Performed Operation Date: 11/26/21 12:30 Actual Procedures p Right Total Knee Replacement(Right) - Arvind Carl MD Hospital Course (1) Status post total right knee replacement: This patient is a 66 year old female admitted on 11/26/21 and underwent total knee arthroplasty. She tolerated the procedure well and there were no complications. Transferred to the PACU post op and later to the orthopedic floor for further care. She was given ancef for antibiotic prophylaxis. She was also given MELINDA stockings, SCDs, and aspirin for DVT prophylaxis. Hemoglobin, hematocrit, and vital signs were monitored during her hospital stay and remained stable. Did not require any blood transfusions. There were no complications during her hospital stay. By post op day #1 the patient was tolerating a regular diet, pain was reasonably controlled with oral pain medicine, and she was participating in physical therapy. On post op day #1 the patient was discharged home and set up with home health care. She was given printed discharge instructions including prescriptions for extra strength tylenol, aspirin, toradol, zofran, and di laudid. Continue physical therapy, weight bearing as tolerated. Continue MELINDA stockings. Follow up approximately 2 weeks post op or sooner if there are problems or concerns. Coding Level of Care Code None Diagnoses Status post total right knee replacement Z96.651
== END 2021-11-27 16:20 | disposition home health service (06) ==
LOC: 3E 10:35 → ASU 10:35